=== PATIENT | male | born 1955 | race Caucasian/White ===

== ENCOUNTER 2024-08-06 12:09 | Outpatient (AMB) | payer MEDICARE, SELFPAY ==
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
[2024-08-06 12:18] VITALS: BP 140/90; PULSE 72; O2SAT 96
== END 2024-08-06 12:50 | disposition home or self-care (01) ==
PROVIDERS: Visit Provider Physician Assistant
DX: R53.83 Other fatigue (principal)

== ENCOUNTER → 2024-08-06 12:09 | Outpatient (BNVA) | payer MEDICARE, SELFPAY | PROVIDERS: Visit Provider Physician Assistant | DX: R53.83 Other fatigue (principal) | CPT/HCPCS: 99212 ==